=== PATIENT | male | born 1975 | race Two or more races ===

== ENCOUNTER 2024-03-18 23:07 | Emergency (ER) | payer MEDICAID, OTHER ==
[~2024-03-18] VITALS: Ht 175.3 cm; Wt 85.7 kg
[2024-03-18 23:11] VITALS: BP 155/93; PULSE 109; RESP 16; O2SAT 99
--- NOTE | 2024-03-19 01:39 | ED.PDOC ---
Musculoskeletal HPI Comments 48-year-old male presents to ER with complaints of left 3rd finger pain x 2 days. Patient reports he has been experiencing pain/swelling/discoloration and limited range of motion to left 3rd finger x2 days s/p getting "poked by a cactus". He rates his current pain a 10/10 to left 3rd finger without radiatio n. Denies use of medications for current symptoms. Denies fever, body aches, chills, skin drainage or any further symptoms/complaints Chief Complaint: Upper Extremity Time Seen by MD: 23:21 Primary Care Provider: UNKNOWN Reviewed Notes: Nurses Notes, Medications, Allergies Allergies: Coded Allergies: NO KNOWN ALLERGIES (Unverified , 03/18/24) Information Source: Patient Mode of Arrival: Ambulatory Past Medical History PAST MEDICAL HISTORY: Denies Surgical History (Other): LEFT LEG SURGERY Family History Family History: Unknown Social History Smoker: Cigarettes, Less Than 1 Pack/Day Alcohol: Denies ETOH Use Drugs: Denies Drug Use Lives In: Home Constitutional: denies: chills, diaphoresis, fatigue, fever, malaise, sweats, weakness, others EENTM: denies: blurred vision, double vision, ear bleeding, ear discharge, ear drainage, ear pain, ear ringing, eye pain, eye redness, hearing loss, mouth pain, mouth swelling, nasal discharge, nose bleeding, nose congestion, nose pain, photophobia, tearing, throat pain, throat swelling, voice changes, others Respiratory: denies: cough, hemoptysis, orthopnea, SOB at rest, shortness of breath, SOB with excertion, stridor, wheezing, others Cardiovascular: denies: chest pain, dizzy spells, diaphoresis, Dyspnea on exertion, edema, irregular heart beat, left arm pain, lightheadedness, palpitations, PND, syncope, others Gastrointestinal: denies: abdomen distended, abdominal pain, blood streaked bowels, constipated, diarrhea, dysphagia, difficulty swallowing, hematemesis, melena, nausea, poor appetite, poor fluid intake, rectal bleeding, rectal pain, vomiting, others Genitourinary: denies: burning, dysuria, flank pain, frequency, hematuria, incontinence, penile discharge, penile sore, pain, testicle pain, testicle swelling, urgency, others Neurological: denies: dizziness, fainting, headache, left sided numbness, left sided weakness, numbness, paresthesia, pre-existing deficit, right sided numbness, right sided weakness, seizure, speech problems, tingling, tremors, weakness, others Musculoskeletal: reports: others ( STATED IN HPI) Integumetry: reports: others ( STATED IN HPI) Allergic/Immunocompromised: denies: Difficulty Healing, Frequent Infections, Hives, Itching, others Hematologic/Lymphatic: denies: anemia, blood clots, easy bleeding, easy bruising, swollen glands, others Endocrine: denies: excessive hunger, excessive sweating, excessive thirst, excessive urination, flushing, intolerance to cold, intolerance to heat, unexplained weight gain, unexplained weight loss, others Psychiatric: denies: anxiety, bipolar disorder, depression, hopeless, panic disorder, schizophrenia, sleepless, suicidal, others Physical Exam General Appearance: No Apparent Distress HEENT: PERRL/EOMI Neck: Full Range of Motion, Non-Tender, Normal Respiratory: Chest Non-Tender, Lungs Clear, No Accessory Muscle Use, No Respiratory Distress, Normal Breath Sounds Cardiovascular: No Murmur, No Gallop, Regular Rate/Rhythm Breast Exam: Deferred Gastrointestinal: NOT DONE Genitalia: Deferred Pelvic: Deferred Rectal: Deferred Extremities: Normal capillary refill Musculoskeletal : Extremity Location: Finger 3 (MODERATE SWELLING/TTP/ERYTHEMA NOTED TO LEFT 3RD FINGER. PERCUSSION TENDERNESS NOTED TO LEFT 3RD FINGER. LIMITED RANGE OF MOTION ON FLEXION OF LEFT 3RD FINGER NOTED. PATIENT IS ALSO NOTED TO HAVE A RING TO LEFT 3RD FINGER. PULSES INTACT.) Neurologic: Alert, hospice social worker II-XII nml as Tested, Normal Affect, Normal Mood, No Sensory Deficits Cerebellar Function: Normal Reflexes: Normal Skin: Dry, Warm Peripheral Pulses: 2+ Radial (R), 2+ Radial (L), 2+ Brachial (R), 2+ Brachial (L) Lymphatic: No Adenopathy Was a procedure done? Was a procedure done?: No Sedation Sedation?: No Differential Diagnosis EXT Differential Diagnosis: Dislocation, Laceration, Neurovascular injury X-Ray, Labs, Meds, VS Vital Signs Date Time Temp Pulse Resp B/P (MAP) Pulse Ox O2 Delivery O2 Flow Rate FiO2 03/18/24 23:11 97.6 109 16 155/93 (113) 99 PATIENT: MARY GUEVARAT: [id number]: [id number] : 1975 LOC: ER ROOM / BED: / AGE / SEX: 48 / M ADM STATUS: REG ER SERVICE [id number] ORDERING PHYSICIAN: JOSE DANIEL HORTON PROCEDURE(s): LFIN3 - L 3RD FINGER XRAY REASON: LEFT 3RD FINGER PAIN/SWELLING ORDER NUMBER(s): [id number], ACCESSION NUMBER(s): [id number] Examination: LFIN3 Clinical Indication: LEFT 3RD FINGER PAIN/SWELLING Comparison: None. Technique: X-ray of the finger AP, oblique and lateral views. Findings: There is diffuse soft tissue thickening surrounding the entire finger. No soft tissue emphysema. No evidence of bone erosion/sclerotic areas. No periosteal reaction. The bones and joints are normal. No evidence of fracture is seen. Impression: 1. Diffuse soft tissue thickening of the third digit, without any evidence of osteomyelitis. 2. No fracture or dislocation. Electronically Signed 03/19/2024 03:13 Ravinder Lawrence ATED BY: JER JENKINS MD DICTATED DATE/TIME: 03/19/24312 SIGNED BY: JER JENKINS MD SIGNED DATE/TIME: 03/19/24312 CC: LEFT 3RD FINGER X-RAY REVIEWED PATIENT REFUSED RING REMOVAL TO LEFT 3RD FINGER DISCUSSED WITH PATIENT THAT I WOULD LIKE TO ORDER LAB WORK, IV ANTIBIOTICS AND ARRANGE TRANSFER FOR HIGHER LEVEL OF CARE DUE TO URGENT NEED FOR A HAND SPECIA LIST WITH ATTEMPTING TO CONTACT [facility] FIRST. PATIENT REFUSED, STATING HE WOULD LIKE TO SIGN OUT AGAINST MEDICAL ADVICE AND WILL DRIVE HIMSELF DOWN TO [facility] ER UPON SIGNING OUT AMA SEVERAL ATTEMPTS WERE MADE TO CONVINCE PATIENT TO STAY FOR FURTHER EVALUATION/TREATMENT/NEED FOR TRANSFER WITHOUT SUCCESS RISK OF SEPSIS, PARTIAL/PERMANENT DISABILITY, LIMB LOSS, NECROSIS AND RISK OF EXPLAINED SIGNING OUT AGAINST MEDICAL ADVICE. PATIENT ALERT AND ORIENTED X4 AND VERBALIZED FULL UNDERSTANDING OF SIGNING OUT AMA. PATIENT SIGNED OUT OF ER AGAINST MEDICAL ADVICE STATING HE WAS DRIVING HIMSELF DOWN TO [facility] ER IMMEDIATELY UPON SIGNING OUT AGAINST MEDICAL ADVICE HERE Images Reviewed?: Images reviewed and evaluated by me Time of 1ST Reevaluation: 01:35 Reevaluation 1ST: N/A Patient Education/Counseling: Diagnosis, Need For Follow Up, Other (PATIENT LEFT AGAINST MEDICAL ADVICE) Family Education/Counseling: No Family Present Departure 1 Departure Time of Disposition: 01:37 Impression: Primary Impression: Flexor tenosynovitis of finger Disposition: 07 LEFT AGAINST MEDICAL ADVICE Condition: Serious Critical Care Note Critical Care Time?: No Stability Stability form required: No Heart Score Heart Score: Heart Score Response (Comments) Value History N/A 0 EKG N/A 0 Age N/A 0 Risk Factors N/A 0 Troponin N/A 0 Total 0 JOSE DANIEL HORTON Mar 19, 2024 01:39
--- NOTE | 2024-03-19 03:13 | DVH ---
Examination: LFIN3 Clinical Indication: LEFT 3RD FINGER PAIN/SWELLING Comparison: None. Technique: X-ray of the finger AP, oblique and lateral views. Findings: There is diffuse soft tissue thickening surrounding the entire finger. No soft tissue emp hysema. No evidence of bone erosion/sclerotic areas. No periosteal reaction. The bones and joints are normal. No evidence of fracture is seen. Impression: 1. Diffuse soft tissue thickening of the third digit, without any evidence of osteomyelitis. 2. No fracture or dislocation. Electronically Signed 03/19/2024 03:13 Ravinder Lawrence
== END 2024-03-19 01:39 | disposition left against medical advice (07) ==
LOC: ER 23:07
DX: M65.842 Other synovitis and tenosynovitis, left hand (principal); Z98.890 Other specified postprocedural states; F17.210 Nicotine dependence, cigarettes, uncomplicated
CPT/HCPCS: 73140